=== PATIENT | female | born 1950 | race Caucasian/White ===

== ENCOUNTER 2018-09-06 06:20 | Emergency (ER) | payer MEDICARE ==
[2018-09-06 06:24] VITALS: BP 114/72
[2018-09-06] MEDS ORDERED: DOXYcycline CAP(*) 100 MG PO ONE (06:41)
--- NOTE | 2018-09-06 06:42 | ED ---
Skin Complaint - HPI Summary HPI Summary: Pt. is a 68 y.o male who presents to the ER for tick to left ear. Pt. [place] was [place] the park on [place], 4 days ago, and believe this is when tick attached. Pt. does not animals in home. Pt. notes hx of Lyme disease. Pt. denies fever, chills, h/a, new joint pain, or rash. Sxs are mild in severity. Touching affected area makes sxs worse. Rest makes sxs better. - History of Current Complaint Chief Complaint: EDGeneral Time Seen by Provider: 09/06/18 06:30 Stated Complaint: "I THINK I HAVE A TICK IN MY EAR" PER PT Pain Intensity: 10 - Allergy/Home Medications Allergies/Adverse Reactions: Allergies Allergy/AdvReac Type Severity Reaction Status Date / Time atovaquone [From Malarone] Allergy Stomach Verified 09/06/18 06:24 Cramps azithromycin Allergy Diarrhea Verified 09/06/18 06:24 proguanil [From Malarone] Allergy Stomach Verified 09/06/18 06:24 Cramps Sulfa (Sulfonamide Allergy Unknown Verified 09/06/18 06:24 Antibiotics) Reaction Details tinidazole [From Tindamax] Allergy Unknown Verified 09/06/18 06:24 Reaction Details SEDATIVES AND NARCOTIC AdvReac SENSITIVE Uncoded 09/06/18 06:24 SENSITIVITY PMH/Surg Hx/FS Hx/Imm Hx Previously Healthy: Yes Endocrine/Hematology History: Denies: Hx Diabetes Cardiovascular History: Reports: Other Cardiovascular Problems/Disorders - STATES HAS A HISTORY OF LOW BLOOD PRESSURE Denies: Hx Hypertension, Hx Pacemaker/ICD Respiratory History: Denies: Hx Asthma History: Denies: Hx Renal Disease Musculoskeletal History: Reports: Hx Arthritis, Hx Tendonitis - HIPS- HX OF AND CURRENTLY Denies: Hx Osteoporosis Sensory History: Reports: Hx Contacts or Glasses Denies: Hx Hearing Aid Opthamlomology History: Reports: Hx Contacts or Glasses Neurological History: Denies: Hx Headaches Psychiatric History: Denies: Hx Panic Disorder - Cancer History Hx Chemotherapy: No Hx Radiation Therapy: No - Surgical History Surgery Procedure, Year, and Place: cyst removed from scalp, tonsils. L shoulder rotator cuff Hx Anesthesia Reactions: No Infectious Disease History: No Infectious Disease History: Denies: History Other Infectious Disease, Traveled Outside the [place] in Last 30 Days - Family History Known Family History: Positive: Hypertension, Non-Contributory - Social History Occupation: Employed Full-time Lives: With Family Alcohol Use: Rare Substance Use Type: Reports: None Smoking Status (MU): Former Smoker Review of Systems Constitutional: Negative Negative: Fever, Chills Positive: Other - right shoulder pain from recent sx.. Negative: Arthralgia Positive: Other - tick to left ear. Negative: Rash Neurological: Negative Negative: Headache All Other Systems Reviewed And Are Negative: Yes Physical Exam Triage Information Reviewed: Yes Vital Signs On Initial Exam: Initial Vitals Temp Pulse Resp BP Pulse Ox 97.2 F 81 16 114/72 99 09/06/18 06:21 09/06/18 06:21 09/06/18 06:21 09/06/18 06:21 09/06/18 06:21 Vital Signs Reviewed: Yes Appearance: Positive: Well-Appearing - Pt. sitting up in bed in NAD. Skin: Positive: Warm, Dry, Other - Small tick noted to posterior left pinna. No surrounding erythema or erythema migrans. Tick does not appear to be engorged. Head/Face: Positive: Normal Head/Face Inspection Eyes: Positive: Normal, EOMI, DOMINGO Neck: Positive: Supple Neurological: Positive: Normal, CN Intact II-III Psychiatric: Positive: Affect/Mood Appropriate Diagnostics - Vital Signs Vital Signs Temp Pulse Resp BP Pulse Ox 09/06/18 06:21 97.2 F 81 16 114/72 99 - Laboratory Lab Statement: Any lab studies that have been ordered have been reviewed, and results considered in the medical decision making process. Course/Dx - Course Course Of Treatment: Pt. presenting with tick to left ear. She believes tick has been present x 3-4 days. No surrounding erythema or engorgement to suggest tick has been present for awhile. Discussed with pt. prophylactic dose of doxycycline vs starting a full course given she believes tick has been present 3 -4 days. Pt. notes she had bad photophobia when on doxy. last time and would like to take one time prophylactic dose. She will f.u with PCP for further evaluation and testing. Pt. understands and agrees with plan. - Differential Diagnoses - Skin Complaint Differential Diagnoses: Abscess, Cellulitis, Tick Born Illness - Diagnoses Provider Diagnoses: Tick bite Discharge - Sign-Out/Discharge Documenting (check all that apply): Patient Departure Patient Received Moderate/Deep Sedation with Procedure: No - Discharge Plan Condition: Improved Disposition: HOME Patient Education Materials: Tick Bite (ED) Referrals: Sarah Marie MD [Primary Care Provider] - Additional Instructions: Follow up with PCP or return to ER for rash, fever, headache, joint pain or if concerned - Billing Disposition and Condition Condition: IMPROVED Disposition: Home
== END 2018-09-06 06:51 | disposition home or self-care (01) ==
LOC: ED 06:20
DX: S00.461A Insect bite (nonvenomous) of right ear, initial encounter (principal); W57.XXXA Bitten or stung by nonvenomous insect and other nonvenomous arthropods, initial encounter; M19.90 Unspecified osteoarthritis, unspecified site; Z88.8 Allergy status to other drugs, medicaments and biological substances; Z88.3 Allergy status to other anti-infective agents; Z88.2 Allergy status to sulfonamides; Z87.891 Personal history of nicotine dependence
CPT/HCPCS: 99282; A9270-GY